=== PATIENT | female | born 1960 | race Caucasian/White ===

== ENCOUNTER 2017-11-07 07:22 | Inpatient (IN) | payer MEDICAID ==
[~2017-11-07] VITALS: Ht 167.6 cm; Wt 59.0 kg
[2017-11-07 07:24] VITALS: BP_SYST 163
--- NOTE | 2017-11-07 07:24 | NUR ---
Patient to ER bed 3 to gown for evaluation. Side rails up. Report given to day shift RN.
--- NOTE | 2017-11-07 07:30 | NUR ---
Pt presents to ER c/o abdominal pain 10/10 on pain scale along with nausea and vomiting. Pt also reports she is experiencing withdrawals from alcohol, as she states her last alcoholic beverage was a "pint of vodka yesteday morning". Upon arrival to ER, pt not actively vomiting, pt experiencing tremorts. Pt denies chest pain or sob. Pt AOX4, ambulatory, no signs of acute distress, respirations even and unlabored.
--- NOTE | 2017-11-07 08:50 | NUR ---
ER Dr. Alegre at bedside examining patient.
[2017-11-07] MEDS ORDERED: ONDANSETRON HCL 4 MG/2 ML VIAL IVP ONE (09:00)
[2017-11-07] MEDS ORDERED: FOLIC ACID 1 MG, THIAMINE HCL 100 MG, MAGNESIUM SULFATE 1 GM, MVI 10 ML in NACL 0.9% 1,... IV ONE (09:00)
[2017-11-07] MEDS ORDERED: PANTOPRAZOLE SODIUM 40 MG/VIAL (PROTONIX) IVP ONE (09:00)
[2017-11-07] MEDS ORDERED: LORazepam 2 MG/ML VIAL (FOR ER USE) IVP ONE (09:00)
[2017-11-07] MEDS ORDERED: THIAMINE HCL 100 MG/ML VIAL ONE (09:29)
--- NOTE | 2017-11-07 09:36 | NUR ---
Pt medicated as ordered by Dr. Alegre. Pt tolerated well; will continue to monitor.
[2017-11-07 09:48] LABS: EOSINOPHILS % (AUTO) 0.1 % (0.0-4.0); HEMATOCRIT 43.1 % (36-48); HEMOGLOBIN 15.3 g/dL (12.0-16.0); LYMPHOCYTES # (AUTO) 1.2 K/uL (1.0-5.5); LYMPHOCYTES % (AUTO) 8.6 % (20.5-51.5); MEAN CORPUSCULAR HEMOGLOBIN 31 pg (27-31); MEAN CORPUSCULAR HGB CONC 35 % (32-36); MEAN CORPUSCULAR VOLUME 88 fL (79.0-98.0); MONOCYTES # (AUTO) 0.3 K/uL (0.0-1.0); MONOCYTES % (AUTO) 1.9 % (1.7-9.3); PLATELET COUNT (AUTO) 357 K/uL (130-430); RED BLOOD CELL COUNT(AUTO) 4.91 MIL/uL (4.2-6.2); RED CELL DISTRIBUTION WIDTH 12.8 % (9.0-15.0); WHITE BLOOD COUNT (AUTO) 14.2 K/uL (4.8-10.8)
[2017-11-07 09:50] LABS: NEUTROPHILS # (AUTO) 12.7 K/uL (1.8-7.7); NEUTROPHILS % (AUTO) 89.4 % (40.0-70.0)
[2017-11-07 09:53] LABS: ANION GAP 13 (5-15); CALCIUM 8.9 mg/dL (8.4-11.0); CHLORIDE 100 mmol/L (98-107); CREATININE 0.81 mg/dL (0.55-1.30); GLUCOSE 92 mg/dL (70-99); POTASSIUM 3.6 mmol/L (3.5-5.1); SODIUM SERUM 140 mmol/L (136-145); UREA NITROGEN, BLOOD 19 mg/dL (8-21)
[2017-11-07 09:56] LABS: GFR AFRICAN AMERICAN 94 mL/min (>90)
[2017-11-07 10:00] LABS: ALANINE AMINOTRANSFERASE 23 U/L (12-78); ALBUMIN 3.8 g/dL (3.4-4.8); ASPARTATE AMINOTRANSFERASE 25 U/L (10-37); LIPASE 92 U/L (73-393)
[2017-11-07 10:01] LABS: ACETAMINOPHEN < 1 ug/mL (1-30); ALCOHOL, BLOOD < 3 mg/dL (<10)
[2017-11-07] MEDS ORDERED: TRAZ-123 PO (10:25)
[2017-11-07] MEDS ORDERED: SERT25TA PO (10:25)
[2017-11-07] MEDS ORDERED: ARIP2TAB3 PO (10:25)
--- NOTE | 2017-11-07 10:25 | NUR ---
Medication reconciliation completed with information provided by pt. Any prior medication reconciliation on file was reviewed and corrected.
[2017-11-07 10:49] LABS: BARBITURATE, URINE NEGATIVE (NEG <=200); BENZODIAZEPINE, URINE POSITIVE (NEG <=150); CANNABINOID, URINE NEGATIVE (NEG <=50); COCAINE, URINE NEGATIVE (NEG <=150); METHAMPHETAMINES SCREEN,URINE NEGATIVE (NEG <=500); OPIATE, URINE NEGATIVE (NEG <=100); PHENCYCLIDINE SCREEN,URINE NEGATIVE (NEG <=25); UR TRICYCLIC ANTIDEPRESSANTS NEGATIVE (NEG <=300); URINE AMPHETAMINE NEGATIVE (NEG <=500); URINE METHADONE NEGATIVE (NEG <=200); URINE OXYCODONE SCREEN NEGATIVE (NEG <=100); URINE PROPOXYPHENE SCREEN NEGATIVE (NEG <=300)
--- NOTE | 2017-11-07 10:49 | NUR ---
EKG performed at Bedside. Physician given copy of EKG for review.
--- NOTE | 2017-11-07 11:33 | NUR ---
Admission Note Received patient from ER with diagnosis of etoh withdrawals,possible delirium. Initial Plan of Care discussed-patient verbalized understanding. Patient placed on telemetry. Oriented to room, call light, pain management and safety.
--- NOTE | 2017-11-07 11:40 | NUR ---
Patient will be admitted to care of Dr. Rg. Admitted to tele unit. Will go to room 106a. Belongings list completed. Summary report printed. Report will be given at bedside. Transfer to tele via ACLS protocol. Licensed nurse present. IV present no signs or symptoms of infiltration.
--- NOTE | 2017-11-07 11:40 | NUR ---
BELONGINGS DURING BELONGINGS CHECK WITH ADMIT NURSE. ADMIT NURSE NOTED PATIENT WITH [place]:$20x8, $10x3, $5x4, $1x9. VERIFIED [place] AMOUNT WITH A.N. AND OFFERED PATIENT TO PUT MONEY IN HOSPITAL SAFE. PATIENT REFUSED TO PUT MONEY IN SAFE AND WANTS IN HER PURSE. RISKS AND CONSEQUENCES EXPLAINED; PATIENT AWARE.
[2017-11-07 11:44] VITALS: BP_SYST 149
--- NOTE | 2017-11-07 11:45 | NUR ---
NOTES PATIENT IS SITTING UP IN BED. A/OX3. COMPLAINING OF PAIN TO RIGHT LOWER LEG; RIGHT LEG WITH NO SWELLING AND NO REDNESS NOTED. VITAL SIGNS STABLE. ROOM AIR. NO ACUTE DISTRESS. NO SOB. RESPIRATION EVEN AND UNLABORED. SKIN WARM AND DRY. IV TO LEFT FOOT #24g. IV INFUSING BANANA BAG FROM E.R. AND PATIENT ASHWIN WELL. ORIENTED PATIENT TO ROOM, BED AND CALL LIGHT; PT VERBALIZED UNDERSTANDING. BED IN LOW AND LOCKED POSITION. SIDERAIL UP X3. BED ALARM ON. CALL LIGHT IN REACH. CONT TO MONITOR.
[2017-11-07 12:00] VITALS: BP_SYST 149
[2017-11-07] MEDS ORDERED: ACETAMINOPHEN 325 MG TABLET PO PRN (12:30)
[2017-11-07] MEDS ORDERED: NAPROXEN 250 MG TABLET PO PRN (12:30)
[2017-11-07] MEDS ORDERED: ONDANSETRON HCL 4 MG/2 ML VIAL IVP PRN (12:30)
--- NOTE | 2017-11-07 12:35 | NUR ---
SPOKE TO . REPORTED PATIENT IS COMPLAINING OF 10/10 PAIN TO RIGHT LOWER LEG AROUND THE CALF AREA; SITE WITH NO SWELLING AND NO REDNESS. REPORTED RIGHT LEG DOPPLER RESULT NEGATIVE FOR DVT. PER SHE WILL PUT IN ORDERS FOR PAIN MEDICATION AND RECONCILE PATIENT'S MEDICATIONS
[2017-11-07] MEDS ORDERED: chlordiazePOXIDE HCL 25 MG CAPSULE PO ONE (13:00)
--- NOTE | 2017-11-07 13:45 | NUR ---
Notes Patient had lunch and tolerated clear liquid diet. No nausea/vomiting noted.
--- NOTE | 2017-11-07 14:15 | NUR ---
Notes Patient is resting in bed watching TV. Pain to right lower leg is manageable at this time per patient. All needs met. Call light in reach. Cont to monitor.
--- NOTE | 2017-11-07 15:59 | NUR ---
Seen and examined by at bedside. MD assess patient and patien'ts complaint of right lower leg pain. MD will put in orders. Cont to monitor.
[2017-11-07] MEDS: LORazepam 2 MG/ML VIAL IVP PRN (16:14)
[2017-11-07] MEDS ORDERED: BANANA BAG 1 EA, MVI 10 ML, THIAMINE HCL 100 MG, FOLIC ACID 1 MG, MAGNESIUM SULFATE 1 G... IV SCH ×5 (16:30)
--- NOTE | 2017-11-07 17:15 | NUR ---
Notes Patient resting in bed. Noted rise and fall of chest. No acute distress. No SOB. Respiration even and unlabored. Cont to monitor. Call light in reach.
--- NOTE | 2017-11-07 17:40 | NUR ---
US DOPPLER DOPPLER STUDY TO BILATERAL LOWER EXTREMITY BEING DONE AT BEDSIDE, PATIENT ASHWIN WELL. CONT TO MONITOR. CALL LIGHT IN REACH.
--- NOTE | 2017-11-07 18:42 | NUR ---
CLOSING NOTE PATIENT AWAKE IN BED WATCHING TV. NO ACUTE DISTRESS. NO SOB. RESPIRATION EVEN AND UNLABORED. SKIN WARM AND DRY TO TOUCH. IV TO LEFT FOOT INTACT AND PATENT WITH NO COMPLICATION NOTED. ASHWIN IVF ORDERED. ALL NEEDS MET. CALL LIGHT IN REACH. CONT TO MONITOR. WILL ENDORSE TO ONCOMING SHIFT. OFFERED TO PATIENT AGAIN TO PUT PATIENT'S [place] IN SAFE, PATIENT CONT TO REFUSE. INFORMED PATIENT IF SHE CHANGES HER MIND TO JUST LET HER NURSE KNOW.
[2017-11-07 19:15] VITALS: BP_SYST 121
--- NOTE | 2017-11-07 19:15 | NUR ---
Initial Notes Received patient in bed. Patient is awake alert oriented x3. No s/s of any distress noted. IV noted to L foot g 24 no infiltrate and with good blood return. All extremities are strong, needs supervision. Discuss plan of care with patient and verbalize understanding. Will cont to monitor.
[2017-11-07] MEDS: chlordiazePOXIDE HCL 25 MG CAPSULE PO SCH (20:38)
[2017-11-07] MEDS ORDERED: traZODone HCL 50 MG TABLET (DESYREL) PO SCH (21:00)
--- NOTE | 2017-11-07 21:15 | NUR ---
Rounds Patient is resting in bed at this time. No s/s of any distress noted. Call light in reach, will cont to monitor.
--- NOTE | 2017-11-07 23:15 | NUR ---
Rounds Patient is resting comfortably at this time. No c/o pain and no s/s of any distress noted. Call light in reach, will cont to monitor.
[2017-11-08 00:49] VITALS: BP_SYST 122
--- NOTE | 2017-11-08 01:15 | NUR ---
Rounds Assisted to bathroom and safely back to bed. No c/o pain and no s/s of any distress noted. Call light in reach, will cont to monitor.
--- NOTE | 2017-11-08 02:15 | NUR ---
Rounds Patient is resting comfortably at this time with sitter at bedside. No c/o pain and no s/s of any distress noted. Call light in reach, will cont to monitor.
--- NOTE | 2017-11-08 04:15 | NUR ---
Rounds Patient is resting at this time. No c/o pain and no s/s of any distress noted. Call light in reach, will cont to monitor.
[2017-11-08] MEDS: LORazepam 2 MG/ML VIAL IVP PRN ×3 (04:27→15:05)
[2017-11-08] MEDS: KCL 20 mEq in D5/0.45NS 1000mL 1,000 ML IV SCH ×2 (04:30→14:00)
[2017-11-08] MEDS ORDERED: PANTOPRAZOLE SODIUM 40 MG TAB PO SCH (06:00)
--- NOTE | 2017-11-08 06:46 | NUR ---
End of shift notes Patient is resting at this time. No c/o pain and no s/s of any distress noted. All needs met and anticipated by noc nurses. Bed in low position, side rails up x3 and bed alarm on for safety. Will endorse care to incoming nurse.
[2017-11-08 07:01] LABS: ALBUMIN 3.1 g/dL (3.4-4.8); CALCIUM 8.2 mg/dL (8.4-11.0); CREATININE 0.7 mg/dL (0.55-1.30); POTASSIUM 3.4 mmol/L (3.5-5.1); THYROID STIMULATING HORMONE 1.34 uIu/mL (0.34-4.82); TOTAL BILIRUBIN 1.2 mg/dL (0.0-1.0)
[2017-11-08 07:19] LABS: BASOPHILS % (AUTO) 0.3 % (0.0-2.0); EOSINOPHILS # (AUTO) 0.1 K/uL (0.0-0.4); EOSINOPHILS % (AUTO) 1.5 % (0.0-4.0); HEMATOCRIT 36.3 % (36-48); HEMOGLOBIN 12.7 g/dL (12.0-16.0); LYMPHOCYTES # (AUTO) 1.6 K/uL (1.0-5.5); LYMPHOCYTES % (AUTO) 23.8 % (20.5-51.5); MEAN CORPUSCULAR HEMOGLOBIN 31 pg (27-31); MEAN CORPUSCULAR HGB CONC 35 % (32-36); MEAN CORPUSCULAR VOLUME 89 fL (79.0-98.0); MONOCYTES # (AUTO) 0.3 K/uL (0.0-1.0); MONOCYTES % (AUTO) 4.9 % (1.7-9.3); NEUTROPHILS # (AUTO) 4.7 K/uL (1.8-7.7); NEUTROPHILS % (AUTO) 69.5 % (40.0-70.0); PLATELET COUNT (AUTO) 241 K/uL (130-430); RED CELL DISTRIBUTION WIDTH 12.7 % (9.0-15.0); WHITE BLOOD COUNT (AUTO) 6.7 K/uL (4.8-10.8)
--- NOTE | 2017-11-08 07:26 | NUR ---
OPENING NOTE: MORNING REPORT WAS TAKEN FROM AMMUNITION AND EXPLOSIVES HANDLER NURSE. PATIENT IS ALERT AND ORIENTED X4. PATIENT IS LAYING IN BED. VITALS AND MORNING ASSESSMENT WAS DONE. PATIENT IS COMPLAINING OF DIZZINESS. BED ALARM WAS PUT ON. EDUCATED PATIENT TO CALL IF SHE NEED TO GET UP OR NEEDS ANYTHING ELSE. PATIENT SAID SHE WAS HUNGRY AND WANTED SOMETHING TO EAT. EDUCATED PATIENT THAT SHE IS ON CLEAR LIQUID DIET BUT WILL ASK DRZuri IF SHE CAN ADVANCE DIET. PATIENT NOT COMPLAINING OF SHORTNESS OF BREATH. PATIENT ON ROOM AIR. PATIENT NOT COMPLAINING OF CONSTIPATION. PATIENT HAD FLUIDS INFUSING INTO IV ON FOOT. IV COVERED WITH BRADLEY WRAP. PATIENT COMPLAINING OF A LITTLE BIT OF PAIN IN RIGHT CALF. NO REDNESS, SWELLING, OR WARMTH. CAP REFILL <3, PULSES PRESENT, AND ABLE TO FEEL TOUGH. BED ALARM IS ON AND CALL LIGHT IS IN REACH. BED IS IN LOWEST POSITION WITH SIDE RAILS UP. WILL CONTINUE TO MONITOR.
[2017-11-08 08:04] VITALS: BP_SYST 145
[2017-11-08] MEDS: chlordiazePOXIDE HCL 25 MG CAPSULE PO SCH (08:37)
[2017-11-08] MEDS ORDERED: ARIPiprazole 2 MG TAB PO SCH (09:00)
[2017-11-08] MEDS ORDERED: traZODone HCL 50 MG TABLET (DESYREL) PO SCH (09:00)
[2017-11-08] MEDS ORDERED: SERTRALINE HCL 50 MG TABLET PO SCH (09:00)
--- NOTE | 2017-11-08 09:46 | NUR ---
NOTE: PATIENT WAS COMPLAINING OF SHAKINESS. PATIENT WAS GETTING AGITATED. GAVE PATIENT ATIVAN. PATIENT WAS ALSO COMPLAINING OF PAIN IN LEG AND WANTS SOMETHING FOR IT BUT NOT TYLENOL OR THE OTHER MEDICATION. WILL PAGE . BED ALARM IS ON. WILL CONTINUE TO MONITOR.
--- NOTE | 2017-11-08 10:13 | NUR ---
: DR. RAMIREZ WAS PAGED
--- NOTE | 2017-11-08 10:50 | NUR ---
NOTE: PATIENT'S IV WENT BAD IN FOOT. NEW IV WAS STARTED BY AN CAMILO IN HAND.
--- NOTE | 2017-11-08 10:54 | NUR ---
: DR RAMIREZ CALLED BACK. SAID TO GIVE ONE DOSE OF NORCO 5-325 MG PO. SAID SHE WAS ON HER WAY.
[2017-11-08] MEDS ORDERED: HYDROcodone/ACETAMIN 5-325 MG TAB (NORCO/ VICODIN) PO ONE (11:00)
--- NOTE | 2017-11-08 11:15 | NUR ---
NOTE: PATIENT WENT TO RESTROOM. HOOKED HER BACK UP TO FLUIDS. GAVE PATIENT PAIN MEDICATION. PATIENT STILL ANXIOUS. BED ALARM IS ON. WILL CONTINUE TO MONITOR.
[2017-11-08] MEDS ORDERED: POTASSIUM CHLORIDE 10 MEQ TAB.PRT.SR PO ONE (12:15)
[2017-11-08] MEDS ORDERED: cloNIDine HCL 0.1 MG TABLET PO PRN (12:30)
[2017-11-08 12:39] VITALS: BP_SYST 128
--- NOTE | 2017-11-08 13:22 | NUR ---
NOTE: GAVE PATIENT POTASSIUM SCHEDULED. PATIENT SWALLOWED WITH OUT DIFFICULTIES. PATIENT LAYING IN BED AND WANTS TO SHOWER. TOLD HER SHE CANT BECAUSE OF THE BOX. SAID SHE CAN TAKE A SPONGE BATH. WILL HELP PATIENT WITH THAT AND CONTINUE TO MONITOR.
--- NOTE | 2017-11-08 14:46 | NUR ---
Social Service Note: SENIOR SOLUTIONS CONSULTANT met with pt at bedside; pt states that she was at a sober living for one year; pt states that she drank while at the sober living and got kicked out. Pt states that she is currently staying with friends. Pt states that she would like information on more sober living homes in [facility]. [facility] has provided pt with listing of sober living homes for [facility]. [facility] also provided pt with resources for: homeless assistance resources, local [facility], outpatient mental health, substance abuse, and food [place]. SENIOR SOLUTIONS CONSULTANT will remain available for support and will follow up as needed.
--- NOTE | 2017-11-08 15:05 | NUR ---
NOTE: PATIENT WAS COMPLAINING THAT SHE WAS SHAKY AND ANXIOUS AND WANTED SOMETHING. GAVE ATIVAN. WAS WAITING FOR PATIENT TO BE DONE WITH BATH FOR SAFETY. PATIENT HAS FLUIDS INFUSING. PATIENT WANTED LIST OF HOTELS IN THE AREA TO STAY THE NIGHT THEN SHE WAS GOING TO GO HOME TOMORROW ([address] [place]). BED ALARM IS ON AND CALL LIGHT IN REACH. ENCOURAGED PATIENT TO CALL IF SHE NEEDED ANYTHING.
--- NOTE | 2017-11-08 15:22 | NUR ---
Dietitian Recommendations * Consider advance to full liquid diet if/when medically appropriate LP, RD Please refer to Nutrition Assessment for details.
--- NOTE | 2017-11-08 15:45 | NUR ---
NOTE: PATIENT NO LONGER SHAKY BUT WANTS TO LEAVE. PATIENT AMBULATING WELL. PATIENT NOT COMPLAINING OF PAIN AT MOMENT. WILL PAGE DR. RAMIREZ FOR ORDER.
[2017-11-08 15:59] VITALS: BP_SYST 128
--- NOTE | 2017-11-08 16:00 | NUR ---
MD: DR RAMIREZ WAS PAGED. SAID IT WAS OKAY TO DISCHARGE PATIENT. SAID FOR PATIENT TO NOT DRINK ALCOHOL. PRESCRIPTION IN CHART FOR PATIENT. SAID TO CONTINUE HOME MEDICATIONS.
--- NOTE | 2017-11-08 16:15 | NUR ---
D/C Patient Patient given medication reconciliation form and D/C instructions. Exit Care provided. Patient verbalized understanding. MD discussed with patient the results and treatment provided. Ambulatory with steady gait for discharge to home. Patient in stable condition, ID band removed. IV catheter removed, intact and dressing applied, no active bleeding. Rx given. Patient educated on pain management. All belongings sent with patient. Walked patient out to front.
[2017-11-08] MEDS ORDERED: chlordiazePOXIDE HCL 25 MG CAPSULE PO SCH (21:00)
== END 2017-11-08 16:15 | disposition home or self-care (01) | DRG 351 ==
LOC: SED 07:22 → STU 11:12
PROVIDERS: ADMIT Internal Medicine; ATTEND Internal Medicine
DX: M79.661 Pain in right lower leg (principal); F10.231 Alcohol dependence with withdrawal delirium; F32.9 Major depressive disorder, single episode, unspecified; Z79.899 Other long term (current) drug therapy
CPT/HCPCS: 36415; 73590-TC; 80053; 80307; 82140-TC; 83690-TC; 83735-TC; 84443-TC; 85025; 93005; 93923; 96374; 96375; 99285; C9113; G0480; G0481; G0482; J2060; J2405; J3411; J3475; J3490; J7030

== ENCOUNTER 2017-11-10 12:52 | Inpatient (IN) | payer MEDICAID ==
[~2017-11-10] VITALS: Ht 167.6 cm; Wt 60.8 kg
[2017-11-10 12:52] VITALS: BP_SYST 93
[~2017-11-10 12:52] MED LIST: ARIP2TAB3 PO; SERT25TA PO; TRAZ-123 PO
[2017-11-10] MEDS ORDERED: NACL 0.9% 1,000 ML IV ONE (12:55)
[2017-11-10] MEDS ORDERED: ONDANSETRON HCL 4 MG/2 ML VIAL IVP ONE (13:00)
[2017-11-10 13:18] LABS: BASOPHILS # (AUTO) 0.1 K/uL (0.0-0.2); BASOPHILS % (AUTO) 0.8 % (0.0-2.0); EOSINOPHILS % (AUTO) 0.7 % (0.0-4.0); HEMATOCRIT 41.8 % (36-48); HEMOGLOBIN 14.1 g/dL (12.0-16.0); LYMPHOCYTES # (AUTO) 2.6 K/uL (1.0-5.5); LYMPHOCYTES % (AUTO) 37.9 % (20.5-51.5); MEAN CORPUSCULAR HEMOGLOBIN 29 pg (27-31); MEAN CORPUSCULAR HGB CONC 34 % (32-36); MEAN CORPUSCULAR VOLUME 87 fL (79.0-98.0); MONOCYTES # (AUTO) 0.2 K/uL (0.0-1.0); MONOCYTES % (AUTO) 2.6 % (1.7-9.3); NEUTROPHILS # (AUTO) 3.9 K/uL (1.8-7.7); PLATELET COUNT (AUTO) 303 K/uL (130-430); RED BLOOD CELL COUNT(AUTO) 4.83 MIL/uL (4.2-6.2); RED CELL DISTRIBUTION WIDTH 13.8 % (9.0-15.0); WHITE BLOOD COUNT (AUTO) 6.8 K/uL (4.8-10.8)
[2017-11-10 13:37] LABS: ANION GAP 16 (5-15); CALCIUM 8.3 mg/dL (8.4-11.0); CHLORIDE 105 mmol/L (98-107); CREATININE 0.82 mg/dL (0.55-1.30); GLUCOSE 58 mg/dL (70-99); POTASSIUM 4.3 mmol/L (3.5-5.1); SODIUM SERUM 142 mmol/L (136-145); UREA NITROGEN, BLOOD 17 mg/dL (8-21)
[2017-11-10 13:38] LABS: GFR AFRICAN AMERICAN 93 mL/min (>90)
[2017-11-10 13:41] LABS: PROTHROMBIN TIME 9.8 SECS (9.5-12.5)
[2017-11-10] MEDS ORDERED: FOLIC ACID 1 MG, THIAMINE HCL 100 MG, MAGNESIUM SULFATE 1 GM, MVI 10 ML in NACL 0.9% 1,... IV ONE (13:45)
[2017-11-10 13:46] LABS: ALANINE AMINOTRANSFERASE 18 U/L (12-78); ALBUMIN 3.5 g/dL (3.4-4.8); ALCOHOL, BLOOD 365 mg/dL (<10); AMYLASE 31 U/L (0-100); ASPARTATE AMINOTRANSFERASE 30 U/L (10-37); LIPASE 108 U/L (73-393); TOTAL BILIRUBIN 0.3 mg/dL (0.0-1.0)
[2017-11-10 13:47] LABS: ACETAMINOPHEN < 1 ug/mL (1-30)
[2017-11-10 15:02] LABS: BILIRUBIN,URINE NEGATIVE (NEGATIVE); BLOOD, URINE 3+ (NEGATIVE); CLARITY/URINE CLOUDY (CLEAR); COLOR,URINE YELLOW (YELLOW); GLUCOSE,URINE NEGATIVE (NEGATIVE); KETONES,URINE NEGATIVE (NEGATIVE); LEUKOCYTE ESTERASE ,URINE 3+ (NEGATIVE); NITRITE, URINE POSITIVE (NEGATIVE); PH,URINE 5.5 (5.0-8.0); PROTEIN URINE NEGATIVE (NEGATIVE); UROBILINOGEN,URINE 0.2 (0.2-1.0)
[2017-11-10 15:16] LABS: BACTERIA,URINE MANY /HPF (None Seen); MUCUS,URINE None Seen /LPF (None Seen); WBC,URINE 80-100 /HPF (0-3)
[2017-11-10 15:20] LABS: BARBITURATE, URINE NEGATIVE (NEG <=200); BENZODIAZEPINE, URINE POSITIVE (NEG <=150); URINE AMPHETAMINE NEGATIVE (NEG <=500)
[2017-11-10 15:21] LABS: CANNABINOID, URINE NEGATIVE (NEG <=50); COCAINE, URINE NEGATIVE (NEG <=150); METHAMPHETAMINES SCREEN,URINE NEGATIVE (NEG <=500); OPIATE, URINE NEGATIVE (NEG <=100); PHENCYCLIDINE SCREEN,URINE NEGATIVE (NEG <=25); UR TRICYCLIC ANTIDEPRESSANTS NEGATIVE (NEG <=300); URINE METHADONE NEGATIVE (NEG <=200); URINE OXYCODONE SCREEN NEGATIVE (NEG <=100); URINE PROPOXYPHENE SCREEN NEGATIVE (NEG <=300)
[2017-11-10] MEDS: NACL 0.9% 1,000 ML IV SCH (16:00)
[2017-11-10 16:35] VITALS: BP_SYST 101
[2017-11-10 16:45] VITALS: BP_SYST 101
[2017-11-10] MEDS ORDERED: LORazepam 2 MG/ML VIAL IVP SCH ×2 (16:45→18:00)
[2017-11-10] MEDS ORDERED: MUPIROCIN 2% TOPICAL OINTMENT 22 GM NS PRN (16:45)
[2017-11-10] MEDS ORDERED: THIAMINE HCL 100 MG TABLET PO SCH (16:45)
[2017-11-10] MEDS ORDERED: FOLIC ACID 1 MG TABLET PO SCH (16:45)
[2017-11-10] MEDS ORDERED: POTASSIUM CHLORIDE 20 MEQ TAB.PRT.SR PO PRN (16:45)
[2017-11-10] MEDS ORDERED: ONDANSETRON HCL 4 MG/2 ML VIAL IVP PRN (16:45)
[2017-11-10] MEDS ORDERED: MAGNESIUM SULFATE 50 ML IV PRN (16:45)
[2017-11-10] MEDS ORDERED: DOCUSATE SODIUM 100 MG CAPSULE PO PRN (16:45)
[2017-11-10] MEDS ORDERED: MORPHINE 2 MG/ML INJ. SYRINGE IVP PRN (16:45)
[2017-11-10] MEDS ORDERED: ACETAMINOPHEN 325 MG TABLET PO PRN (16:45)
[2017-11-10] MEDS ORDERED: LORazepam 2 MG/ML VIAL ONE (16:48)
[2017-11-10] MEDS ORDERED: SIMETHICONE 80 MG TAB.CHEW PO SCH (17:00)
[2017-11-10] MEDS ORDERED: BELLADONNA ALKALOIDS/PHENOBARB 16.2 MG TABLET PO SCH (17:00)
[2017-11-10] MEDS ORDERED: LACTOBACILLUS RHAMNOSUS GG 1 CAP CAPSULE PO SCH (17:00)
[2017-11-10 17:02] LABS: PHOSPHORUS 4.2 mg/dL (2.7-4.5); THYROID STIMULATING HORMONE 0.19 uIu/mL (0.34-4.82)
[2017-11-10] MEDS ORDERED: cefTRIAXone 1 GM in D5W 50 ML IV SCH (17:30)
[2017-11-10] MEDS ORDERED: ZOLPIDEM TARTRATE 5 MG TABLET PO PRN (19:00)
[2017-11-10 19:50] VITALS: BP_SYST 128
[2017-11-10] MEDS: SIMETHICONE 80 MG TAB.CHEW PO SCH (20:14)
[2017-11-10] MEDS: traZODone HCL 50 MG TABLET (DESYREL) PO SCH (20:14)
[2017-11-10] MEDS: MORPHINE 2 MG/ML INJ. SYRINGE IVP PRN (20:15)
[2017-11-10] MEDS: LORazepam 2 MG/ML VIAL IVP PRN (22:33)
[2017-11-11 00:20] VITALS: BP_SYST 118
[2017-11-11] MEDS: NACL 0.9% 1,000 ML IV SCH ×2 (03:50→21:13)
[2017-11-11] MEDS: MORPHINE 2 MG/ML INJ. SYRINGE IVP PRN ×4 (03:50→23:15)
[2017-11-11 06:38] LABS: BASOPHILS % (AUTO) 0.2 % (0.0-2.0); EOSINOPHILS # (AUTO) 0.1 K/uL (0.0-0.4); EOSINOPHILS % (AUTO) 1.1 % (0.0-4.0); HEMATOCRIT 33.6 % (36-48); HEMOGLOBIN 11.6 g/dL (12.0-16.0); LYMPHOCYTES # (AUTO) 1.6 K/uL (1.0-5.5); LYMPHOCYTES % (AUTO) 32.7 % (20.5-51.5); MEAN CORPUSCULAR HEMOGLOBIN 31 pg (27-31); MEAN CORPUSCULAR HGB CONC 35 % (32-36); MEAN CORPUSCULAR VOLUME 90 fL (79.0-98.0); MONOCYTES # (AUTO) 0.2 K/uL (0.0-1.0); MONOCYTES % (AUTO) 4.9 % (1.7-9.3); NEUTROPHILS # (AUTO) 2.9 K/uL (1.8-7.7); NEUTROPHILS % (AUTO) 61.1 % (40.0-70.0); PLATELET COUNT (AUTO) 205 K/uL (130-430); RED BLOOD CELL COUNT(AUTO) 3.73 MIL/uL (4.2-6.2); WHITE BLOOD COUNT (AUTO) 4.8 K/uL (4.8-10.8)
[2017-11-11 06:41] LABS: CALCIUM 7.9 mg/dL (8.4-11.0); CREATININE 0.81 mg/dL (0.55-1.30); POTASSIUM 4.4 mmol/L (3.5-5.1)
[2017-11-11 08:00] VITALS: BP_SYST 141
[2017-11-11] MEDS ORDERED: FOLIC ACID 1 MG, THIAMINE HCL 100 MG, MAGNESIUM SULFATE 1 GM, MVI 10 ML in NACL 0.9% 1,... IV ONE (09:00)
[2017-11-11] MEDS: SERTRALINE HCL 50 MG TABLET PO SCH (09:00)
[2017-11-11] MEDS: SIMETHICONE 80 MG TAB.CHEW PO SCH ×3 (09:01→21:13)
[2017-11-11] MEDS: LACTOBACILLUS RHAMNOSUS GG 1 CAP CAPSULE PO SCH (09:01)
[2017-11-11] MEDS: ARIPiprazole 2 MG TAB PO SCH (09:01)
[2017-11-11] MEDS: cefTRIAXone 1 GM in D5W 50 ML IV SCH (09:06)
[2017-11-11] MEDS: LORazepam 2 MG/ML VIAL IVP PRN (11:37)
[2017-11-11] MEDS ORDERED: METHOCARBAMOL 500 MG TABLET PO PRN (13:30)
[2017-11-11] MEDS: LORazepam 1 MG TABLET PO SCH ×2 (14:16→21:13)
[2017-11-11 20:05] VITALS: BP_SYST 137
[2017-11-11] MEDS: traZODone HCL 50 MG TABLET (DESYREL) PO SCH (21:14)
[2017-11-12 01:26] VITALS: BP_SYST 132
[2017-11-12] MEDS: LORazepam 1 MG TABLET PO SCH ×3 (05:28→22:38)
[2017-11-12] MEDS: NACL 0.9% 1,000 ML IV SCH ×2 (05:30→17:52)
[2017-11-12] MEDS: MORPHINE 2 MG/ML INJ. SYRINGE IVP PRN ×4 (05:40→23:28)
[2017-11-12 07:33] LABS: CALCIUM 7.4 mg/dL (8.4-11.0); CREATININE 0.58 mg/dL (0.55-1.30); POTASSIUM 3.2 mmol/L (3.5-5.1)
[2017-11-12 07:37] LABS: PHOSPHORUS 2.1 mg/dL (2.7-4.5)
[2017-11-12 07:53] LABS: BASOPHILS % (AUTO) 0.4 % (0.0-2.0); EOSINOPHILS # (AUTO) 0.1 K/uL (0.0-0.4); EOSINOPHILS % (AUTO) 2.3 % (0.0-4.0); HEMATOCRIT 33.4 % (36-48); LYMPHOCYTES # (AUTO) 1.3 K/uL (1.0-5.5); MEAN CORPUSCULAR HEMOGLOBIN 30 pg (27-31); MEAN CORPUSCULAR HGB CONC 33 % (32-36); MEAN CORPUSCULAR VOLUME 90 fL (79.0-98.0); MONOCYTES # (AUTO) 0.2 K/uL (0.0-1.0); MONOCYTES % (AUTO) 4.6 % (1.7-9.3); NEUTROPHILS # (AUTO) 2.1 K/uL (1.8-7.7); NEUTROPHILS % (AUTO) 58.7 % (40.0-70.0); PLATELET COUNT (AUTO) 169 K/uL (130-430); RED BLOOD CELL COUNT(AUTO) 3.73 MIL/uL (4.2-6.2); RED CELL DISTRIBUTION WIDTH 13.6 % (9.0-15.0)
[2017-11-12 07:55] VITALS: BP_SYST 151
[2017-11-12] MEDS: LACTOBACILLUS RHAMNOSUS GG 1 CAP CAPSULE PO SCH (09:16)
[2017-11-12] MEDS: SIMETHICONE 80 MG TAB.CHEW PO SCH ×3 (09:16→20:13)
[2017-11-12] MEDS: ARIPiprazole 2 MG TAB PO SCH (09:16)
[2017-11-12] MEDS: SERTRALINE HCL 50 MG TABLET PO SCH (09:16)
[2017-11-12] MEDS ORDERED: chlordiazePOXIDE HCL 25 MG CAPSULE PO ONE (09:45)
[2017-11-12] MEDS: LORazepam 2 MG/ML VIAL IVP PRN (10:06)
[2017-11-12] MEDS: cefTRIAXone 1 GM in D5W 50 ML IV SCH (10:10)
[2017-11-12 10:12] LABS: WHITE BLOOD COUNT (AUTO) 3.7 K/uL (4.8-10.8)
[2017-11-12 11:57] VITALS: BP_SYST 141
[2017-11-12 13:18] LABS: T4 (THYROXINE) 7.5 ug/dL (4.5-12.0)
[2017-11-12 15:00] VITALS: BP_SYST 152
[2017-11-12] MEDS: chlordiazePOXIDE HCL 25 MG CAPSULE PO SCH ×2 (15:08→20:13)
[2017-11-12 20:11] VITALS: BP_SYST 136
[2017-11-12] MEDS: traZODone HCL 50 MG TABLET (DESYREL) PO SCH (20:13)
[2017-11-13] VITALS: BP_SYST 119
[2017-11-13] MEDS: LORazepam 1 MG TABLET PO SCH (05:31)
[2017-11-13] MEDS: NACL 0.9% 1,000 ML IV SCH (05:32)
[2017-11-13] MEDS: MORPHINE 2 MG/ML INJ. SYRINGE IVP PRN (06:22)
[2017-11-13 08:00] VITALS: BP_SYST 140
[2017-11-13 08:07] LABS: BASOPHILS % (AUTO) 0.7 % (0.0-2.0); EOSINOPHILS # (AUTO) 0.1 K/uL (0.0-0.4); EOSINOPHILS % (AUTO) 2.4 % (0.0-4.0); HEMATOCRIT 35.2 % (36-48); HEMOGLOBIN 11.7 g/dL (12.0-16.0); LYMPHOCYTES # (AUTO) 1.6 K/uL (1.0-5.5); LYMPHOCYTES % (AUTO) 38.2 % (20.5-51.5); MEAN CORPUSCULAR HEMOGLOBIN 30 pg (27-31); MEAN CORPUSCULAR HGB CONC 33 % (32-36); MEAN CORPUSCULAR VOLUME 90 fL (79.0-98.0); MONOCYTES # (AUTO) 0.2 K/uL (0.0-1.0); MONOCYTES % (AUTO) 5.5 % (1.7-9.3); NEUTROPHILS # (AUTO) 2.2 K/uL (1.8-7.7); NEUTROPHILS % (AUTO) 53.2 % (40.0-70.0); PLATELET COUNT (AUTO) 166 K/uL (130-430); RED BLOOD CELL COUNT(AUTO) 3.91 MIL/uL (4.2-6.2); RED CELL DISTRIBUTION WIDTH 13.6 % (9.0-15.0); WHITE BLOOD COUNT (AUTO) 4.1 K/uL (4.8-10.8)
[2017-11-13 08:26] LABS: CALCIUM 8.8 mg/dL (8.4-11.0); CREATININE 0.63 mg/dL (0.55-1.30); POTASSIUM 4.3 mmol/L (3.5-5.1)
[2017-11-13] MEDS: LACTOBACILLUS RHAMNOSUS GG 1 CAP CAPSULE PO SCH (08:46)
[2017-11-13] MEDS: cefTRIAXone 1 GM in D5W 50 ML IV SCH (08:47)
[2017-11-13] MEDS: SERTRALINE HCL 50 MG TABLET PO SCH (08:47)
[2017-11-13] MEDS: SIMETHICONE 80 MG TAB.CHEW PO SCH (08:47)
[2017-11-13] MEDS: chlordiazePOXIDE HCL 25 MG CAPSULE PO SCH (08:47)
[2017-11-13] MEDS: LORazepam 2 MG/ML VIAL IVP PRN (08:49)
[2017-11-13] MEDS: ARIPiprazole 2 MG TAB PO SCH (08:50)
[2017-11-13 11:25] VITALS: BP_SYST 121
[2017-11-13 12:24] VITALS: BP_SYST 121
[2017-11-13 12:37] VITALS: BP_SYST 170
== END 2017-11-13 13:02 | disposition home or self-care (01) | DRG 775 ==
LOC: SED 12:52 → STU 15:57
PROVIDERS: ADMIT Family Medicine; ATTEND Family Medicine
DX: F10.229 Alcohol dependence with intoxication, unspecified (principal); N17.0 Acute kidney failure with tubular necrosis; N39.0 Urinary tract infection, site not specified; F32.9 Major depressive disorder, single episode, unspecified; E87.6 Hypokalemia; F10.239 Alcohol dependence with withdrawal, unspecified; G31.2 Degeneration of nervous system due to alcohol; Z91.018 Allergy to other foods; Z79.899 Other long term (current) drug therapy; Z71.41 Alcohol abuse counseling and surveillance of alcoholic
CPT/HCPCS: 36415; 70450-TC; 71045; 80048; 80053; 80061; 80307; 81000-TC; 81025; 82140-TC; 82150-TC; 82550-TC; 83036; 83690-TC; 83735-TC; 83880; 84100-TC; 84436; 84439; 84443-TC; 84479; 84480; 84484; 85025; 85610-TC; 85730-TC; 87081; 87086; 87186-TC; 93005; 93970; 96361; 96365; 96366; 96375; 99285; G0480; G0482; J0696; J2060; J2270; J2405; J3411; J3475; J3490; J7030; J7060

== ENCOUNTER 2017-11-16 15:21 | Emergency (ER) | payer MEDICAID ==
[~2017-11-16] VITALS: Ht 170.2 cm; Wt 54.4 kg
[2017-11-16 15:21] VITALS: BP_SYST 118
--- NOTE | 2017-11-16 15:21 | NUR ---
Patient to ER bed 05 to gown for evaluation. Side rails up. Report given to PAMELA Cowan
--- NOTE | 2017-11-16 15:26 | NUR ---
Found in [facility], brought in via BLS. ETOH substance abuse. Pt states she has been drinking vodka for a few weeks. A&O x3.
--- NOTE | 2017-11-16 15:33 | NUR ---
ER Dr. Samaniego at bedside examining patient.
--- NOTE | 2017-11-16 16:05 | NUR ---
# 20 gauge angiocath placed to L forearm. Use of asceptic technique. Opsite placed over site. Blood return noted. Blood for lab drawn from site. Flushed with 10 cc of normal saline. No evidence of infiltration noted. Patient tolerated well. Addendum: 11/16/17 at 1609 by [email or web address] # 22 gauge angiocath placed to L forearm. Use of asceptic technique. Opsite placed over site. Blood return noted. Blood for lab drawn from site. Flushed with 10 cc of normal saline. No evidence of infiltration noted. Patient tolerated well.
[2017-11-16 16:20] LABS: BASOPHILS % (AUTO) 0.9 % (0.0-2.0); EOSINOPHILS % (AUTO) 0.2 % (0.0-4.0); HEMATOCRIT 46.6 % (36-48); HEMOGLOBIN 15.4 g/dL (12.0-16.0); LYMPHOCYTES # (AUTO) 2.6 K/uL (1.0-5.5); LYMPHOCYTES % (AUTO) 50.3 % (20.5-51.5); MEAN CORPUSCULAR HEMOGLOBIN 30 pg (27-31); MEAN CORPUSCULAR HGB CONC 33 % (32-36); MEAN CORPUSCULAR VOLUME 89 fL (79.0-98.0); MONOCYTES # (AUTO) 0.1 K/uL (0.0-1.0); MONOCYTES % (AUTO) 2.4 % (1.7-9.3); NEUTROPHILS # (AUTO) 2.3 K/uL (1.8-7.7); NEUTROPHILS % (AUTO) 46.2 % (40.0-70.0); PLATELET COUNT (AUTO) 256 K/uL (130-430); RED BLOOD CELL COUNT(AUTO) 5.22 MIL/uL (4.2-6.2); RED CELL DISTRIBUTION WIDTH 14.3 % (9.0-15.0)
[2017-11-16 16:30] LABS: CALCIUM 8.7 mg/dL (8.4-11.0); CREATININE 0.85 mg/dL (0.55-1.30); POTASSIUM 3.6 mmol/L (3.5-5.1)
[2017-11-16 16:34] LABS: ALBUMIN 3.7 g/dL (3.4-4.8); TOTAL BILIRUBIN 0.3 mg/dL (0.0-1.0)
--- NOTE | 2017-11-16 16:40 | NUR ---
Urine sent to lab for UA.
[2017-11-16 16:52] LABS: PROTHROMBIN TIME 9.7 SECS (9.5-12.5)
[2017-11-16 16:54] LABS: BARBITURATE, URINE NEGATIVE (NEG <=200); BENZODIAZEPINE, URINE POSITIVE (NEG <=150); CANNABINOID, URINE NEGATIVE (NEG <=50); COCAINE, URINE NEGATIVE (NEG <=150); METHAMPHETAMINES SCREEN,URINE NEGATIVE (NEG <=500); OPIATE, URINE NEGATIVE (NEG <=100); PHENCYCLIDINE SCREEN,URINE NEGATIVE (NEG <=25); UR TRICYCLIC ANTIDEPRESSANTS NEGATIVE (NEG <=300); URINE AMPHETAMINE NEGATIVE (NEG <=500); URINE METHADONE NEGATIVE (NEG <=200); URINE OXYCODONE SCREEN NEGATIVE (NEG <=100); URINE PROPOXYPHENE SCREEN NEGATIVE (NEG <=300)
--- NOTE | 2017-11-16 17:02 | NUR ---
Patient resting quietly. No acute distress noted. Vital signs within normal range.
--- NOTE | 2017-11-16 17:38 | NUR ---
rPatient transported to radiology via keely, accompanied by Stewart
--- NOTE | 2017-11-16 17:45 | NUR ---
Patient resting in gurney. Chest rise and fall noted. No acute distress noted.
--- NOTE | 2017-11-16 18:37 | NUR ---
Patient brought dinner tray, sitting up in bed. Will continue to monitor.
[2017-11-16] MEDS ORDERED: LORazepam 2 MG/ML VIAL (FOR ER USE) IVP ONE (19:00)
[2017-11-16] MEDS ORDERED: NACL 0.9% 1,000 ML IV ONE ×2 (19:00→21:30)
--- NOTE | 2017-11-16 19:48 | NUR ---
Patient is AAO x 4 now, sitting up in bed. More alert than at time of arrival. States she is feeling shaky requesting medication. Notified Dr. Khalil. Will continue to monitor.
--- NOTE | 2017-11-16 20:40 | NUR ---
Medicated per MD orders. Will continue to monitor.
--- NOTE | 2017-11-16 21:52 | NUR ---
Medicated per MD orders. IVF infusing with no s/s of infiltration at this time. Will cont to monitor
--- NOTE | 2017-11-16 21:56 | NUR ---
Patient requesting something for the "shakes" stating that PO medication did not help. notified.
--- NOTE | 2017-11-16 23:02 | NUR ---
Patient resting quietly. No acute distress noted.
--- NOTE | 2017-11-17 00:05 | NUR ---
ER at bedside re examining patient.
[2017-11-17] MEDS ORDERED: DIPHENHYDRAMINE INJ 50 MG/ML VIAL IVP ONE (00:15)
--- NOTE | 2017-11-17 01:44 | NUR ---
Patient resting quietly in [place]. No acute distress noted.
--- NOTE | 2017-11-17 03:16 | NUR ---
Attempted to road test patient. Patient states she is still shaky and unable to get out of bed. Patient placed in bed with rails up. Md notified.
--- NOTE | 2017-11-17 04:00 | NUR ---
Patient given water per request.
--- NOTE | 2017-11-17 05:15 | NUR ---
Patient resting comfortably. No acute distress noted. Rise and fall of chest noted.
[2017-11-17 06:05] VITALS: BP_SYST 122
--- NOTE | 2017-11-17 06:05 | NUR ---
Patient given written and verbal discharge instructions and verbalizes understanding. ER MD discussed with patient the results and treatment provided. Patient in stable condition. ID arm band removed. IV catheter removed intact and dressing applied, no active bleeding. Rx of Ativan given. Patient educated on pain management and to follow up with PMD. Pain Scale 0/10. Opportunity for questions provided and answered. Medication side effect fact sheet provided.
== END 2017-11-17 06:05 | disposition home or self-care (01) ==
LOC: SED 15:21
DX: F10.129 Alcohol abuse with intoxication, unspecified (principal); Z91.010 Allergy to peanuts; Z91.018 Allergy to other foods; Z79.899 Other long term (current) drug therapy
CPT/HCPCS: 36415; 70450; 80053; 80307; 82150; 83690; 84484; 85025; 85610; 85730; 96374; 96375; 99285; G0482; J1200; J2060; J7030

== ENCOUNTER 2017-11-18 11:14 | Emergency (ER) | payer MEDICAID ==
[~2017-11-18] VITALS: Ht 157.5 cm; Wt 72.6 kg
[2017-11-18 11:19] VITALS: BP_SYST 146
--- NOTE | 2017-11-18 11:19 | NUR ---
Placed in room 2. Placed on ventilation mechanic, blood pressure machine and pulse oximeter. To gown for exam. Side rails up. Report given to Doug SANTIAGO.
--- NOTE | 2017-11-18 11:30 | NUR ---
Pt presents to ER with multiple complaints. Pt was brought in by [facility] B[facility] as she was at [employer] when she began to experience difficulty walking due to pain on her legs. Pt also c/o abdominal pain 6/10 on pain scale, nausea, vomiting, diarrhea, vaginal bleeding altho pt states she has not had a period in 5 years. Pt not in distress, speaking full sentences, respirations even and unlabored, AOX4.
--- NOTE | 2017-11-18 11:41 | NUR ---
ER at bedside examining patient.
[2017-11-18] MEDS ORDERED: NACL 0.9% 1,000 ML IV ONE (12:00)
--- NOTE | 2017-11-18 12:25 | NUR ---
Laboratory at bedside.
--- NOTE | 2017-11-18 12:25 | NUR ---
# 22 gauge angiocath placed to R HAND. Use of asceptic technique. Opsite placed over site. Blood return noted. Flushed with 10 cc of normal saline. No evidence of infiltration noted. Patient tolerated well.
--- NOTE | 2017-11-18 12:46 | NUR ---
Ultrasound at bedside.
[2017-11-18 12:54] LABS: BASOPHILS % (AUTO) 0.7 % (0.0-2.0); EOSINOPHILS % (AUTO) 0.2 % (0.0-4.0); HEMATOCRIT 40.5 % (36-48); LYMPHOCYTES # (AUTO) 1.2 K/uL (1.0-5.5); LYMPHOCYTES % (AUTO) 25.6 % (20.5-51.5); MEAN CORPUSCULAR HEMOGLOBIN 29 pg (27-31); MEAN CORPUSCULAR HGB CONC 32 % (32-36); MEAN CORPUSCULAR VOLUME 89 fL (79.0-98.0); MONOCYTES # (AUTO) 0.2 K/uL (0.0-1.0); MONOCYTES % (AUTO) 4.4 % (1.7-9.3); NEUTROPHILS # (AUTO) 3.4 K/uL (1.8-7.7); NEUTROPHILS % (AUTO) 69.1 % (40.0-70.0); PLATELET COUNT (AUTO) 221 K/uL (130-430); RED BLOOD CELL COUNT(AUTO) 4.54 MIL/uL (4.2-6.2); WHITE BLOOD COUNT (AUTO) 4.8 K/uL (4.8-10.8)
[2017-11-18 13:00] LABS: PROTHROMBIN TIME 10.1 SECS (9.5-12.5)
[2017-11-18] MEDS ORDERED: LORazepam 2 MG/ML VIAL (FOR ER USE) IVP ONE (13:00)
[2017-11-18 13:01] LABS: ANION GAP 14 (5-15); CALCIUM 8.8 mg/dL (8.4-11.0); CHLORIDE 102 mmol/L (98-107); CREATININE 0.74 mg/dL (0.55-1.30); GLUCOSE 90 mg/dL (70-99); SODIUM SERUM 140 mmol/L (136-145); UREA NITROGEN, BLOOD 8 mg/dL (8-21)
[2017-11-18 13:03] LABS: GFR AFRICAN AMERICAN 105 mL/min (>90)
[2017-11-18 13:15] LABS: ALANINE AMINOTRANSFERASE 26 U/L (12-78); ALBUMIN 3.7 g/dL (3.4-4.8); ALCOHOL, BLOOD 142 mg/dL (<10); ASPARTATE AMINOTRANSFERASE 35 U/L (10-37); TOTAL BILIRUBIN 0.9 mg/dL (0.0-1.0)
[2017-11-18 13:19] LABS: ACETAMINOPHEN < 1 ug/mL (1-30)
[2017-11-18] MEDS ORDERED: POTASSIUM CHLORIDE 20 MEQ TAB.PRT.SR PO ONE (13:30)
--- NOTE | 2017-11-18 14:10 | NUR ---
Dr. Alegre at bedside speaking with pt discussing lab and ultrasound results.
[2017-11-18 14:20] VITALS: BP_SYST 146
--- NOTE | 2017-11-18 14:20 | NUR ---
Patient given written and verbal discharge instructions and verbalizes understanding. ER MD discussed with patient the results and treatment provided. Patient in stable condition. ID arm band removed. IV catheter removed intact and dressing applied, no active bleeding. Rx of Xanax given. Patient educated on pain management and to follow up with PMD. Pain Scale 2/10. Opportunity for questions provided and answered. Medication side effect fact sheet provided.
== END 2017-11-18 14:20 | disposition home or self-care (01) ==
LOC: EDBD 11:14 → SED 11:14 → MERGE 11:14 → SED 14:20
DX: N93.9 Abnormal uterine and vaginal bleeding, unspecified (principal); F10.129 Alcohol abuse with intoxication, unspecified; E87.6 Hypokalemia; F41.9 Anxiety disorder, unspecified; R03.0 Elevated blood-pressure reading, without diagnosis of hypertension; F31.9 Bipolar disorder, unspecified
CPT/HCPCS: 36415; 76830; 76857; 80053; 85025; 85610; 85730; 96361; 96374; 99285; G0480; G0481; G0482; J2060; J7030

== ENCOUNTER 2017-11-20 21:48 | Emergency (ER) | payer MEDICAID ==
[~2017-11-20] VITALS: Ht 167.6 cm; Wt 61.2 kg
[2017-11-20 21:58] VITALS: BP_SYST 149
[2017-11-20] MEDS ORDERED: ACETAMINOPHEN 500 MG TABLET PO ONE (22:30)
[2017-11-20] MEDS ORDERED: LORazepam 1 MG TABLET PO ONE (22:30)
[2017-11-20 23:56] LABS: HEMATOCRIT 36.8 % (36-48); HEMOGLOBIN 12.4 g/dL (12.0-16.0); MEAN CORPUSCULAR HEMOGLOBIN 30 pg (27-31); MEAN CORPUSCULAR HGB CONC 34 % (32-36); MEAN CORPUSCULAR VOLUME 89 fL (79.0-98.0); PLATELET COUNT (AUTO) 174 K/uL (130-430); RED BLOOD CELL COUNT(AUTO) 4.12 MIL/uL (4.2-6.2); RED CELL DISTRIBUTION WIDTH 14.1 % (9.0-15.0); WHITE BLOOD COUNT (AUTO) 6.2 K/uL (4.8-10.8)
[2017-11-21 00:05] LABS: CALCIUM 8.8 mg/dL (8.4-11.0); CREATININE 0.82 mg/dL (0.55-1.30); POTASSIUM 3.6 mmol/L (3.5-5.1)
[2017-11-21 00:22] LABS: BASOPHILS % (MANUAL) 0 % (0-2); EOSINOPHILS % (MANUAL) 1 % (0-7); LYMPHOCYTES % (MANUAL) 29 % (20-46); MONOCYTES % (MANUAL) 3 % (0-11)
[2017-11-21 01:24] LABS: BILIRUBIN,URINE NEGATIVE (NEGATIVE); BLOOD, URINE 2+ (NEGATIVE); CLARITY/URINE CLEAR (CLEAR); COLOR,URINE YELLOW (YELLOW); GLUCOSE,URINE NEGATIVE (NEGATIVE); KETONES,URINE NEGATIVE (NEGATIVE); LEUKOCYTE ESTERASE ,URINE NEGATIVE (NEGATIVE); NITRITE, URINE NEGATIVE (NEGATIVE); PH,URINE 5.5 (5.0-8.0); PROTEIN URINE NEGATIVE (NEGATIVE); UROBILINOGEN,URINE 0.2 (0.2-1.0)
[2017-11-21 01:31] LABS: BACTERIA,URINE FEW /HPF (None Seen); WBC,URINE 0-3 /HPF (0-3)
[2017-11-21 01:33] LABS: BARBITURATE, URINE NEGATIVE (NEG <=200); BENZODIAZEPINE, URINE POSITIVE (NEG <=150); CANNABINOID, URINE NEGATIVE (NEG <=50); COCAINE, URINE NEGATIVE (NEG <=150); METHAMPHETAMINES SCREEN,URINE NEGATIVE (NEG <=500); OPIATE, URINE POSITIVE (NEG <=100); PHENCYCLIDINE SCREEN,URINE NEGATIVE (NEG <=25); UR TRICYCLIC ANTIDEPRESSANTS NEGATIVE (NEG <=300); URINE AMPHETAMINE NEGATIVE (NEG <=500); URINE METHADONE NEGATIVE (NEG <=200); URINE OXYCODONE SCREEN NEGATIVE (NEG <=100); URINE PROPOXYPHENE SCREEN NEGATIVE (NEG <=300)
[2017-11-21 06:47] VITALS: BP_SYST 149
== END 2017-11-21 06:43 | disposition home or self-care (01) ==
LOC: SED 21:48
DX: F10.239 Alcohol dependence with withdrawal, unspecified (principal); F32.9 Major depressive disorder, single episode, unspecified; Z91.010 Allergy to peanuts; Z91.018 Allergy to other foods; Z79.899 Other long term (current) drug therapy
CPT/HCPCS: 36415; 80048; 80307; 81000; 85007; 85027; 99284; G0482; 85025

== ENCOUNTER 2017-11-21 20:50 | Emergency (ER) | payer MEDICAID ==
[~2017-11-21] VITALS: Ht 167.6 cm; Wt 63.5 kg
[2017-11-21 20:56] VITALS: BP_SYST 126
[2017-11-21 22:09] LABS: HEMATOCRIT 38.7 % (36-48); HEMOGLOBIN 12.8 g/dL (12.0-16.0); MEAN CORPUSCULAR HEMOGLOBIN 30 pg (27-31); MEAN CORPUSCULAR HGB CONC 33 % (32-36); MEAN CORPUSCULAR VOLUME 90 fL (79.0-98.0); PLATELET COUNT (AUTO) 209 K/uL (130-430); RED BLOOD CELL COUNT(AUTO) 4.28 MIL/uL (4.2-6.2); RED CELL DISTRIBUTION WIDTH 14.8 % (9.0-15.0); WHITE BLOOD COUNT (AUTO) 5.2 K/uL (4.8-10.8)
[2017-11-21 22:14] LABS: CALCIUM 8.4 mg/dL (8.4-11.0); CREATININE 0.77 mg/dL (0.55-1.30); POTASSIUM 3.5 mmol/L (3.5-5.1)
[2017-11-21 22:19] LABS: ALBUMIN 3.5 g/dL (3.4-4.8); TOTAL BILIRUBIN 0.2 mg/dL (0.0-1.0)
[2017-11-21 22:45] LABS: BASOPHILS % (MANUAL) 0 % (0-2); EOSINOPHILS % (MANUAL) 1 % (0-7); LYMPHOCYTES % (MANUAL) 47 % (20-46); MONOCYTES % (MANUAL) 3 % (0-11)
[2017-11-21 23:22] VITALS: BP_SYST 106
== END 2017-11-21 23:21 | disposition home or self-care (01) ==
LOC: SED 20:50
DX: F10.129 Alcohol abuse with intoxication, unspecified (principal); F32.9 Major depressive disorder, single episode, unspecified; R03.0 Elevated blood-pressure reading, without diagnosis of hypertension; Z91.010 Allergy to peanuts; Z91.018 Allergy to other foods; Z79.899 Other long term (current) drug therapy
CPT/HCPCS: 36415; 72170; 80053; 85007; 85027; 93005; 99285; G0482

== ENCOUNTER 2017-11-22 12:54 | Emergency (ER) | payer MEDICAID ==
[~2017-11-22] VITALS: Ht 167.6 cm; Wt 74.8 kg
[2017-11-22 13:03] VITALS: BP_SYST 114
[2017-11-22 18:09] VITALS: BP_SYST 112
== END 2017-11-22 18:15 | disposition home or self-care (01) ==
LOC: SED 12:54
DX: F10.129 Alcohol abuse with intoxication, unspecified (principal); F32.9 Major depressive disorder, single episode, unspecified; Z79.899 Other long term (current) drug therapy; Z91.018 Allergy to other foods; Z91.010 Allergy to peanuts
CPT/HCPCS: 99283